=== PATIENT | female | born 1990 | race Caucasian/White ===

== ENCOUNTER 2019-04-11 07:51 | Emergency (ER) | payer OTHER ==
[~2019-04-11] VITALS: Ht 167.6 cm; Wt 97.5 kg
[~2019-04-11 07:51] MED LIST: CODE1TAB37 PO; DOCUSATE SODIU100 MG PO; Mylicon 125MG PO; PROTONIX40 MG PO; ZANTAC300 MG PO; ZOFRAN4 MG PO; ZYRTEC10 M3 PO
== END 2019-04-11 09:46 | disposition home or self-care (01) ==
LOC: ER 07:51
DX: B96.0 Mycoplasma pneumoniae [M. pneumoniae] as the cause of diseases classified elsewhere (principal)

== ENCOUNTER → 2019-06-28 15:29 | Outpatient (CLI) | payer OTHER | END | disposition home or self-care (01) | LOC: LAB 15:29 | DX: Z28.3 Underimmunization status (principal) ==

== ENCOUNTER 2019-12-06 20:05 | Emergency (ER) | payer OTHER ==
[~2019-12-06] VITALS: Ht 167.6 cm; Wt 97.5 kg
== END 2019-12-06 22:06 | disposition home or self-care (01) ==
LOC: ER 20:05
DX: B34.9 Viral infection, unspecified (principal)

== ENCOUNTER 2020-04-11 | Outpatient (CLI) | payer OTHER | END 2020-04-11 00:01 | disposition home or self-care (01) | LOC: PPH VACUNA | DX: Z23 Encounter for immunization (principal) ==

== ENCOUNTER 2021-01-06 06:35 | Emergency (ER) | payer OTHER ==
[~2021-01-06] VITALS: Ht 167.6 cm; Wt 95.3 kg
[2021-01-06] MEDS ORDERED: ZITHROMAX500 MG PO (08:04)
== END 2021-01-06 08:30 | disposition home or self-care (01) ==
LOC: ER 06:35
DX: J06.9 Acute upper respiratory infection, unspecified (principal); Z11.52 Encounter for screening for COVID-19

== ENCOUNTER 2021-01-29 07:35 | Outpatient (CLI) | payer OTHER ==
[~2021-01-29 07:35] MED LIST changes: +ZITHROMAX500 MG PO
== END 2021-01-29 07:44 | disposition home or self-care (01) ==
LOC: LAB 07:35
DX: I10 Essential (primary) hypertension (principal); Z00.00 Encounter for general adult medical examination without abnormal findings; E03.8 Other specified hypothyroidism; E78.00 Pure hypercholesterolemia, unspecified; E55.9 Vitamin D deficiency, unspecified; Z21 Asymptomatic human immunodeficiency virus [HIV] infection status; R79.89 Other specified abnormal findings of blood chemistry; Z11.4 Encounter for screening for human immunodeficiency virus [HIV]; N39.0 Urinary tract infection, site not specified; Z11.3 Encounter for screening for infections with a predominantly sexual mode of transmission; Z11.59 Encounter for screening for other viral diseases

== ENCOUNTER 2021-02-03 07:36 | Outpatient (CLI) | payer OTHER | END 2021-02-03 07:46 | disposition home or self-care (01) | LOC: SONOGRAMA 07:36 | PROVIDERS: ATTEND Obstetrics & Gynecology | DX: N94.0 Mittelschmerz (principal); R10.2 Pelvic and perineal pain; N94.89 Other specified conditions associated with female genital organs and menstrual cycle ==

== ENCOUNTER 2021-04-15 11:19 | Outpatient (CLI) | payer OTHER | END 2021-04-15 12:19 | disposition home or self-care (01) | LOC: PPH VACUNA 11:19 | PROVIDERS: ATTEND Emergency Medicine Pediatric Emergency Medicine | DX: Z23 Encounter for immunization (principal) ==

== ENCOUNTER 2021-11-06 10:54 | Outpatient (CLI) | payer OTHER | END 2021-11-06 11:01 | disposition home or self-care (01) | LOC: RAD 10:54 | PROVIDERS: ATTEND General Practice | DX: M54.9 Dorsalgia, unspecified (principal); R05.9 Cough, unspecified ==

== ENCOUNTER 2021-11-21 07:42 | Outpatient (CLI) | payer OTHER | END 2021-11-21 07:43 | disposition home or self-care (01) | LOC: LAB 07:42 | PROVIDERS: ATTEND General Practice | DX: Z00.00 Encounter for general adult medical examination without abnormal findings (principal); E78.5 Hyperlipidemia, unspecified; E55.9 Vitamin D deficiency, unspecified; N39.0 Urinary tract infection, site not specified; R42 Dizziness and giddiness; R10.2 Pelvic and perineal pain ==

== ENCOUNTER 2022-10-18 07:18 | Emergency (ER) | payer OTHER ==
[~2022-10-18] VITALS: Ht 167.6 cm; Wt 99.8 kg
== END 2022-10-18 12:51 | disposition home or self-care (01) ==
LOC: ER 07:18
DX: K57.90 Diverticulosis of intestine, part unspecified, without perforation or abscess without bleeding (principal); R10.9 Unspecified abdominal pain; A08.8 Other specified intestinal infections; Z20.822 Contact with and (suspected) exposure to COVID-19; Z88.6 Allergy status to analgesic agent; Z91.018 Allergy to other foods

== ENCOUNTER 2023-03-26 07:12 | Outpatient (CLI) | payer OTHER ==
[2023-04-18] MEDS ORDERED: ONDANSETRON ODT8 MG PO (06:15)
[2023-04-18] MEDS ORDERED: PEPCID AC20 MG PO (06:15)
== END 2023-03-26 07:22 | disposition home or self-care (01) ==
LOC: PPH VACUNA 07:12
PROVIDERS: ATTEND Emergency Medicine Pediatric Emergency Medicine
DX: Z23 Encounter for immunization (principal)
CPT/HCPCS: 90686; G0008

== ENCOUNTER 2024-01-28 06:39 | Emergency (ER) | payer OTHER ==
[~2024-01-28] VITALS: Ht 167.6 cm; Wt 95.3 kg
[~2024-01-28 06:39] MED LIST changes: +ONDANSETRON ODT8 MG PO; +PEPCID AC20 MG PO
[2024-01-28] MEDS ORDERED: LEVALBUTEROL HCL 1.25 MG/3 ML SOLUTION IH SCH (08:15)
[2024-01-28] MEDS ORDERED: METHYLPREDNISOLONE SOD SUCC 125 MG VIAL IV ONE (08:15)
[2024-01-28] MEDS ORDERED: BUDESONIDE 0.5 MG/2 ML AMPUL.NEB IH ONE (08:15)
[2024-01-28] MEDS ORDERED: IPRATROPIUM BROMIDE 0.5 MG/2.5 ML AMPUL.NEB IH ONE (08:30)
[2024-01-28 08:52] LABS: HEMATOCRIT 38.1 % (36.0-45.00); HEMOGLOBIN 13.3 g/dL (12.0-15.00); MEAN CELL VOLUME 85.3 fL (80.00-100.00); MEAN CORPUSCULAR HEMOGLOBIN 29.7 pg (27.00-32.0); MEAN CORPUSCULAR HGB CONC 34.8 g/dl (32.0-36.0); PLATELET COUNT 377 K/uL (150-450); RED BLOOD COUNT 4.47 M/uL (4.00-6.00); RED CELL DISTRIBUTION WIDTH 13.2 % (11.5-14.5)
[2024-01-28 10:18] LABS: ALBUMIN 3.9 gm/dL (3.4-5.0); BILIRUBIN TOTAL 0.29 mg/dL (0.3-1.2); CALCIUM 9.7 mg/dL (8.5-10.1); CREATININE SERUM 0.63 mg/dL (0.55-1.02); GFR 108.17; GLOBULINA 4.4 G/DL (2.4-3.5); POTASSIUM 3.37 mEq/L (3.5-5.1); TOTAL PROTEIN 8.3 gm/dL (6.4-8.2)
== END 2024-01-28 11:31 | disposition home or self-care (01) ==
LOC: ER 06:40
PROVIDERS: General Practice
DX: R53.81 Other malaise (principal); J45.909 Unspecified asthma, uncomplicated; Z20.822 Contact with and (suspected) exposure to COVID-19; Z88.6 Allergy status to analgesic agent; Z91.013 Allergy to seafood; Z91.018 Allergy to other foods

== ENCOUNTER 2024-02-07 23:07 | Emergency (ER) | payer OTHER ==
[~2024-02-07] VITALS: Ht 167.6 cm; Wt 100.7 kg
[2024-02-07] MEDS ORDERED: XOPENEX IH (23:11)
[2024-02-07] MEDS ORDERED: BUDESONIDE IH (23:12)
[2024-02-07] MEDS ORDERED: SIMBICORT IH (23:13)
[2024-02-07] MEDS ORDERED: MAGNESIUM SULFATE IN WATER 4 GM/100 ML PIGGYBACK IV STA (23:26)
[2024-02-07] MEDS ORDERED: METHYLPREDNISOLONE SOD SUCC 125 MG VIAL IV STA (23:28)
[2024-02-07] MEDS ORDERED: LEVALBUTEROL HCL 1.25 MG/3 ML SOLUTION IH STA (23:28)
[2024-02-07] MEDS ORDERED: METHYLPREDNISOLONE SOD SUCC 125 MG VIAL ONE (23:36)
[2024-02-07] MEDS ORDERED: FAMOtidine 200mg/20ml VIAL ONE (23:37)
[2024-02-07] MEDS ORDERED: MAGNESIUM SULFATE 50% 1,000 MG/2 ML VIAL ONE (23:44)
[2024-02-07] MEDS ORDERED: LEVALBUTEROL HCL 1.25 MG/3 ML SOLUTION IH ONE (23:45)
== END 2024-02-08 01:20 | disposition home or self-care (01) ==
LOC: ER 23:07
DX: J45.909 Unspecified asthma, uncomplicated (principal); Z88.6 Allergy status to analgesic agent; Z91.018 Allergy to other foods; Z91.013 Allergy to seafood

== ENCOUNTER 2024-02-25 16:22 | Outpatient (CLI) | payer OTHER ==
[~2024-02-25 16:22] MED LIST changes: +BUDESONIDE IH; +SIMBICORT IH; +XOPENEX IH
[2024-02-25 16:43] LABS: HEMATOCRIT 39.8 % (36.0-45.00); HEMOGLOBIN 13.5 g/dL (12.0-15.00); MEAN CELL VOLUME 87.8 fL (80.00-100.00); MEAN CORPUSCULAR HEMOGLOBIN 29.7 pg (27.00-32.0); MEAN CORPUSCULAR HGB CONC 33.8 g/dl (32.0-36.0); PLATELET COUNT 386 K/uL (150-450); RED BLOOD COUNT 4.54 M/uL (4.00-6.00)
== END 2024-02-25 16:30 | disposition home or self-care (01) ==
LOC: LAB 16:22
DX: J40 Bronchitis, not specified as acute or chronic (principal)

== ENCOUNTER 2024-05-11 10:30 | Outpatient (CLI) | payer OTHER | END 2024-05-11 11:00 | disposition home or self-care (01) | LOC: PPH VACUNA 10:30 | PROVIDERS: ATTEND Emergency Medicine Pediatric Emergency Medicine | DX: Z23 Encounter for immunization (principal) ==

== ENCOUNTER → 2024-08-15 09:20 | Outpatient (CLI) | payer OTHER ==
[2024-08-16 10:05] LABS: HEPATITIS B CORE IGG Negative (Negative); HEPATITIS B SURFACE ANTIBODY Reactive (.); HEPATITIS C VIRUS ANTIBODY Non Reactive (Non Reactive)
== END | disposition home or self-care (01) ==
LOC: LAB 09:20
DX: A64 Unspecified sexually transmitted disease (principal); B19.9 Unspecified viral hepatitis without hepatic coma

== ENCOUNTER 2025-05-25 09:00 | Outpatient (CLI) | payer OTHER | END 2025-05-25 09:10 | disposition home or self-care (01) | LOC: PPH VACUNA 09:00 | PROVIDERS: ATTEND Emergency Medicine Pediatric Emergency Medicine | DX: Z23 Encounter for immunization (principal) ==